=== PATIENT | female | born 1995 | race African-American/Black ===

== ENCOUNTER 2020-11-25 10:19 | Emergency (ER) | payer OTHER, SELFPAY ==
--- NOTE | 2020-11-25 10:24 | ED.URI ---
HPI - URI/Sore Throat General Chief Complaint: Upper Respiratory Infection Stated Complaint: Sore Throat Time Seen by Provider: 11/25/20 10:24 Source: patient and RN notes reviewed History of Present Illness HPI Narrative: Patient is a 25-year-old female who presents the urgent care with complaints of a sore throat, postnasal drainage and congestion. Patient states that she was diagnosed with strep on November 03 and placed on amoxicillin. Patient states she thought she was getting better however she has had some allergy issues for the last couple weeks. States that she has been using vapor cold spray. Denies of fever, chills, nausea, vomiting, headache. Denies of any known exposure to strep or flu. No other acute complaints. No acute distress noted. Patient aware of the plan of care. Some parts of this dictation were generated by voice recognition software and may contain typographical and/or grammatical inaccuracies. Related Data Allergies Allergy/AdvReac Type Severity Reaction Status Date / Time No Known Allergies Allergy Verified 11/25/20 10:46 Review of Systems Review of Systems: Narrative: CONSTITUTIONAL: Denies fever, chills, or sweats. EYES: Denies visual changes, redness, or discharge. ENT: Reports of sore throat, postnasal drainage and sinus congestion CARDIOVASCULAR: Denies chest pain, palpitations, or edema. RESPIRATORY: Denies cough or dyspnea. GASTROINTESTINAL: Denies abdominal pain, nausea, vomiting, or diarrhea. GENITOURINARY: Denies dysuria or hematuria. SKIN: Denies rash or itching. MUSCULOSKELETAL: Denies back pain, joint pain, or myalgia. NEUROLOGIC: Denies headache, numbness, or weakness. All other systems reviewed are negative, except as documented in HPI. PMFSH Comments At the time of my signature, I reviewed and agree with the nursing past medical, surgical, social, and family history. There is no relevant family history pertinent to the patient complaint. Exam Narrative: Exam Narrative: GENERAL: This is a well-nourished, well-developed patient, in no apparent distress. HEAD: normocephalic, atraumatic. EYES: PERRL. Sclera clear/white. Vision is grossly intact. EARS: External ears normal, auditory canals clear and without drainage, TMs normal without perforation. Hearing grossly intact. NOSE: External nose normal with no obvious nasal discharge, nares without redness, no rhinorrhea. THROAT: Mucous membranes moist, moderate postnasal drainage. Mild bilateral tonsillar edema/erythema. No exudate or ulceration. NECK: Neck supple, mild tender right submandibular lymphadenopathy CARDIOVASCULAR: Regular rate and rhythm without murmurs, gallops, or rubs. RESPIRATORY: Clear to auscultation. Breath sounds equal bilaterally. No wheezes, rales, or rhonchi. SKIN: warm, intact with no suspicious lesions or rash, good texture and turgor. NEURO: awake, alert, and oriented to person, place and time. There were no obvious focal neurologic abnormalities. EXTREMITIES: No clubbing, cyanosis, or edema. Course Vital Signs Vital signs: Vital Signs Temperature 98.0 F 11/25/20 10:45 Pulse Rate 80 11/25/20 10:45 Respiratory Rate 16 11/25/20 10:45 Blood Pressure 116/62 11/25/20 10:45 Pulse Oximetry 100 11/25/20 10:45 Temperature 98.0 F 11/25/20 10:45 Pulse Rate 80 11/25/20 10:45 Respiratory Rate 16 11/25/20 10:45 Blood Pressure 116/62 11/25/20 10:45 Pulse Oximetry 100 11/25/20 10:45 Reviewed MDM - URI/Sore Throat MDM Narrative Medical decision making narrative: Reviewed lab results with the patient. She is aware that strep swab was negative. However, will treat for tonsillitis. Advised the patient to use a daily allergy medication as well as Flonase nasal spray. Complete oral antibiotic regimen as prescribed. We will culture the strep but you will not be called considering you are being treated for both tonsillitis and possible strep. Use Tylenol/ibuprofen as needed for any feve
[2020-11-25 10:45] VITALS: BP 116/62; PULSE 80; RESP 16; TEMP 36.7; O2SAT 100
== END 2020-11-25 11:03 | disposition home or self-care (01) ==
PROVIDERS: Emergency Provider Nurse Practitioner Family
DX: J02.9 Acute pharyngitis, unspecified (principal)
CPT/HCPCS: 87081; 87880; 99203; G0463